=== PATIENT | female | born 1990 | race Hispanic/Latino ===

== ENCOUNTER → 2023-09-22 09:16 | Outpatient (REF) | payer OTHER, SELFPAY ==
[2023-09-22 10:12] LABS: % Basophils 0.4 % (0-2); % Eosinophils 1.6 % (0-6); % Immature Granulocytes 0.4 % (0-0.5); % Lymphocytes 21.5 % (20.5-51.1); % Neutrophils 71.1 % (42.2-75.2); Absolute Eosinophils 0.2 10^3/uL (0-0.7); Absolute Lymphocytes 2.4 10^3/uL (1.2-3.4); Absolute Monocytes 0.6 10^3/uL (0.1-0.6); Hemoglobin 10.8 g/dL (12.0-16.0); Mean Corp Hgb Conc. 31.8 g/dL (33.0-37.0); Mean Corpuscular Hgb 22.9 pg (27.0-31.0); Mean Platelet Volume 9.4 fL (7.4-10.4); Nucleated Red Blood Cells % 0 %; Platelet Count 453 10^3/uL (130-400); Red Blood Cell Count 4.72 10^6/uL (4.20-5.40); White Blood Cell Count 11.3 10^3/uL (4.8-10.8)
[2023-09-22 10:42] LABS: ALT (SGPT) 14 U/L (0-35); AST (SGOT) 18 U/L (14-36); Albumin 4.2 g/dl (3.5-5.0); Alkaline Phosphatase 78 U/L (38-126); Blood Urea Nitrogen 12 mg/dl (7-17); Calcium 9.7 mg/dl (8.4-10.2); Carbon Dioxide 24 mmol/L (22-30); Chloride 104 mmol/L (98-107); Glucose 85 mg/dl (70-99); Potassium 4.3 mmol/L (3.5-5.1); Sodium 137 mmol/L (135-145); Total Bilirubin 0.4 mg/dl (0.2-1.3); Total Protein 7.5 g/dl (6.3-8.2); eGFR > 60.00
[2023-09-22 10:49] LABS: Erythrocyte Sed Rate 23 mm/hour (0-20)
[2023-09-22 11:10] LABS: TSH Reflex To Free T4 1.66 uIU/ml (0.47-4.68)
== END ==
LOC: CLINIC 09:16
PROVIDERS: ATTENDING PHYSICIAN Internal Medicine; FAMILY PHYSICIAN Nurse Practitioner Adult Health
DX: R53.1 Weakness (principal)
CPT/HCPCS: 36415; 80053; 84443; 85025; 85652

== ENCOUNTER → 2023-09-27 15:02 | Outpatient (REF) | payer OTHER, SELFPAY | LOC: HWRAD 15:02 | PROVIDERS: ATTENDING PHYSICIAN Internal Medicine; FAMILY PHYSICIAN Nurse Practitioner Adult Health | DX: R53.1 Weakness (principal) | CPT/HCPCS: 70470; Q9967 ==

== ENCOUNTER → 2023-10-03 11:11 | Outpatient (REF) | payer OTHER, SELFPAY ==
[2023-10-03 12:04] LABS: % Basophils 0.5 % (0-2); % Immature Granulocytes 0.4 % (0-0.5); % Lymphocytes 23.8 % (20.5-51.1); % Monocytes 4.6 % (1.7-9.3); % Neutrophils 69.7 % (42.2-75.2); Absolute Basophils 0.1 10^3/uL (0-0.2); Absolute Eosinophils 0.1 10^3/uL (0-0.7); Absolute Lymphocytes 2.4 10^3/uL (1.2-3.4); Absolute Monocytes 0.5 10^3/uL (0.1-0.6); Absolute Neutrophils 7.2 10^3/uL (1.4-6.5); Hematocrit 34.5 % (37.0-47.0); Hemoglobin 10.7 g/dL (12.0-16.0); Mean Corpuscular Hgb 22.4 pg (27.0-31.0); Mean Corpuscular Volume 72.2 fL (81.0-99.0); Mean Platelet Volume 9.5 fL (7.4-10.4); Nucleated Red Blood Cells % 0 %; Platelet Count 428 10^3/uL (130-400); Red Blood Cell Count 4.78 10^6/uL (4.20-5.40); Red Cell Dist. Width 16.1 % (11.5-14.5); White Blood Cell Count 10.3 10^3/uL (4.8-10.8)
[2023-10-03 12:43] LABS: Erythrocyte Sed Rate 8 mm/hour (0-20)
== END ==
LOC: REG 11:11
PROVIDERS: ATTENDING PHYSICIAN Internal Medicine
DX: D72.829 Elevated white blood cell count, unspecified (principal)
CPT/HCPCS: 36415; 85025; 85652; 86140

== ENCOUNTER → 2023-10-18 06:32 | Outpatient (REF) | payer OTHER, SELFPAY | LOC: MRI 06:32 | PROVIDERS: ATTENDING PHYSICIAN Internal Medicine; FAMILY PHYSICIAN Nurse Practitioner Adult Health | DX: R53.1 Weakness (principal) | CPT/HCPCS: 70551 ==

== ENCOUNTER 2023-12-19 12:12 | Emergency (ER) | payer OTHER, SELFPAY ==
[2023-12-19 12:27] VITALS: BP 156/103
--- NOTE | 2023-12-19 14:11 | ED.GENMED ---
History of Present Illness
General
Chief Complaint: Back Pain
Source: patient (language line.)
Exam Limitations: none
Time Seen by Provider: 12/19/23 13:40
Nursing documentation reviewed up to this point in time: agreed with
Travel History
Have you had any contact with someone who has COVID-19?: No
Do you have any symptoms of coronavirus? Fever > 100 degrees, chills, cough, shortness of breath, sore throat, loss of taste or smell, muscle aches, or headache?: No
History of Present Illness
History of Present Illness:
Patient to ED with complaint of low back pain. Symptoms started on monday. Worse with movment. No radiation of pain. No weakness in extremities. No bowel or bladder issues.No history of trauma. No urinary symptoms. To ED accompanied by spouse
for eval.
Past History
Past History
ED Past Medical History: None
ED Past Surgical History: Cholecystectomy
Social History
Tobacco: Non-smoker
Alcohol: None
Drug: None
Review of Systems
Review of Systems
Allergies reviewed?: Yes
All Other Systems: ROS reviewed and negative except as documented in HPI and ROS
Constitutional: Reports no symptoms
EENT: Reports no symptoms
Respiratory: Reports no symptoms
Cardiac: Reports no symptoms
ABD/GI: Reports no symptoms
: Reports no symptoms
Musculoskeletal: Reports back pain (bilateral lower back pain)
Skin: Reports no symptoms
Neurological: Reports no symptoms
Psychiatric: Reports no symptoms
Phy Exam
General Physical Exam
General Presentation: well appearing and no apparent distress
General age: appears stated age
General Skin: warm and dry
General Habitus: normal
General Mental: alert
Musculoskeletal Exam
Musculoskeletal Exam: full ROM and neuro vasc intact
Skin Exam
Skin Exam: normal color, warm/dry and no rash
Psychiatric Exam
Psychiatric Exam: normal mood/affect
Course
Orders/Labs/Results
Orders:
Orders
12/19/23 14:05
Ketorolac [Toradol] 60 mg IM NOW STA
Test Result ONCE
Lumbar Spine Complete, 4 View [CR Lumbar Spine Comp Min 4 Vw*] Urgent
Comment:
Reason For Exam: [email or web address]
12/19/23 15:00
Beta Hcg Urine Qualitative Screen [HCG, Urine Qualitative Screen] Urgent
Date Specimen was Collected: 12/19/23
Time Specimen was Collected: 14:11
12/19/23 16:01
Urinalysis Reflex To Culture Urgent
Date Specimen was Collected: 12/19/23
Time Specimen was Collected: 15:55
Urine Microscopic Reflex Cult Urgent
Urine Culture Urgent
CATHLEEN Source: U
Specimen Description:
Date Specimen was Collected: 12/19/23
Time Specimen was Collected: 15:55
12/19/23 16:32
Nitrofurantoin Monohydrate [Macrobid] 100 mg PO NOW STA
Abnormal Lab Results
12/19/23
16:01
Ur Occult Blood Reflex Trace A
(Negative)
Leukocyte Esterase Rfl 1+ A
(Negative)
Urine WBC (Reflex) 11-15 A /HPF
(0-5)
Urine Bacteria (Reflex) Many A
(Negative)
Vital Signs
Initial and Last Documented VS:
Initial Vital Signs
Temp Pulse Resp BP Pulse Ox
98.6 F 90 20 156/103 100
12/19/23 12:27 12/19/23 12:27 12/19/23 12:27 12/19/23 12:27 12/19/23 12:27
Last Documented Vital Signs
Temp Pulse Resp BP Pulse Ox
98.6 F 84 20 131/83 100
12/19/23 12:27 12/19/23 16:53 12/19/23 12:27 12/19/23 16:53 12/19/23 12:27
*Radiology
Radiology exam reviewed: radiology read reviewed
*Pulse Oximetry
Patient hypoxic: no
*Critical Care Note
Total Time (30-74mins, 75-104mins- exclusive of procedures): Not Applicable
ED Attending Note
-
Portions of this chart may have been created with voice recognition software.� Occasional wrong word or��sound alike� substitutions may have occurred due to the inherent limitations of voice recognition software.
Discharge Plan
Departure
Patient Disposition: Home (Routine Discharge)
Date of Disposition: 12/19/23
Time of Disposition: 16:33
Patient with high blood pressure during this ER visit?: No
Condition: Good
Covid-19: Not Applicable
Discharge Problem:
Low back pain
Instructions: Urinary tract infections in adults, Low Back Pain (DC)
Prescriptions:
New
nitrofurantoin monohyd/m-cryst [Macrobid] 100 mg capsule
100 mg PO BID 5 Days Qty: 10 0RF
ibuprofen 600 mg tablet
600 mg PO Q6H PRN (Reason: Pain) Qty: 20 0RF
Referrals:
[facility] [Outside] - Follow up in 2-3 days
NONE,* [Family Provider] -
Interventions
Interventions:
*Risk Screen - Suicide Last Done: 12/19/23 16:53
*General Assessment Last Done: 12/19/23 14:04
*Neglect/Abuse Screening Last Done: 12/19/23 14:04
*ED COVID-19 Vaccine History Last Done: 12/19/23 12:27
*Nursing Disposition Last Done: 12/19/23 16:53
ED-Musculoskeletal Assessment Last Done: 12/19/23 14:04
Discharge Date and Time
Discharge Date/Time: 12/19/23 16:54
Print Language: ESTONIAN
[2023-12-19] MEDS: TORADOL 60 MG IM (14:33)
[2023-12-19 15:18] LABS: HCG, Urine Qualitative Screen Negative
[2023-12-19 16:13] LABS: Urine Albumin Negative (Neg - Trace); Urine Bilirubin Negative (Negative); Urine Character Slightly Cloudy (Clear); Urine Color Yellow; Urine Glucose Negative (Negative); Urine Ketone Negative (Negative); Urine Leukocyte 1+ (Negative); Urine Nitrite Negative (Negative); Urine Occult Blood Trace (Negative); Urine Specific Gravity 1.025 (<1.030); Urine Urobilinogen Negative (Neg - 1+)
[2023-12-19 16:29] LABS: Urine Bacteria Many (Negative); Urine Mucus Many; Urine Red Blood Cell 0-2 /HPF (0-2)
[2023-12-19] MEDS: MACROBID 100 MG PO (16:45)
[2023-12-19 16:53] VITALS: BP 131/83
== END 2023-12-19 16:54 | disposition home or self-care (01) ==
LOC: EMR 12:12
PROVIDERS: Nurse Practitioner; EMERGENCY PHYSICIAN Emergency Medicine
DX: M54.50 Low back pain, unspecified (principal); Z90.49 Acquired absence of other specified parts of digestive tract
CPT/HCPCS: 99284; 96372; 72110; 81003; 81015; 81025; 87086

== ENCOUNTER → 2024-04-10 09:26 | Outpatient (REF) | payer OTHER, SELFPAY ==
[2024-04-10 11:30] LABS: Erythrocyte Sed Rate 20 mm/hour (0-20)
[2024-04-10 12:20] LABS: Ferritin 5.3 ng/ml (6.24-137)
[2024-04-10 12:51] LABS: Folate 10.2 ng/ml (2.76-20); Vitamin B12 352 pg/ml (239-931)
[2024-04-12 07:46] LABS: ANA, IgG Reflex to HEp-2 None Detected (None Detected)
[2024-04-12 08:02] LABS: Cardiolipin IgA Antibody <10 APL (<=11); Cardiolipin IgM Antibody 10 MPL (<=12); Cardiolipin Igg Antibody <10 GPL (<=14)
[2024-04-12 09:14] LABS: SSA 52 (Ro)(ENA) Ab, IgG 3 AU/mL (0-40); SSA 60 (Ro)(ENA) Ab, IgG 1 AU/mL (0-40)
[2024-04-12 14:51] LABS: Ceruloplasmin 32 mg/dL (16-45)
[2024-04-12 18:51] LABS: Beta-2-Glycoprotein I Ab. IgG <10 SGU (<=20); Beta-2-Glycoprotein I Ab. IgM <10 SMU (<=20)
[2024-04-13 00:34] LABS: Purkinje Cell/Neuronal Nuc IgG None Detected (None Detected)
[2024-04-13 01:58] LABS: Beta-2-Glycoprotein I Ab. IgA <10 SAU (<=20)
[2024-04-13 02:04] LABS: Phosphatidylserine Ab, IgA 0 APS (0-19); Phosphatidylserine Ab, IgG 0 GPS (0-15); Phosphatidylserine Ab, IgM 0 MPS (0-21)
== END ==
LOC: CLINIC 09:26
PROVIDERS: ATTENDING PHYSICIAN Psychiatry & Neurology Neurology
DX: R49.0 Dysphonia (principal)
CPT/HCPCS: 36415; 82390; 82607; 82728; 82746; 85652; 86038; 86140; 86146; 86147; 86148; 86235; 86255; 86780

== ENCOUNTER 2024-05-23 09:13 | Outpatient (RCR) | payer OTHER, SELFPAY | END 2024-05-23 23:59 | disposition home or self-care (01) | LOC: ROT 09:13 | PROVIDERS: ATTENDING PHYSICIAN Psychiatry & Neurology Neurology | DX: G24.9 Dystonia, unspecified (principal); R49.0 Dysphonia; Z73.6 Limitation of activities due to disability; M62.81 Muscle weakness (generalized); E61.1 Iron deficiency | CPT/HCPCS: 97010; 97110; 97167; 97530 ==

== ENCOUNTER 2024-06-12 11:06 | Outpatient (RCR) | payer OTHER, SELFPAY ==
[2024-06-04] MEDS: VENOFER 110 MG IV (11:09)
[2024-06-04 11:13] VITALS: BP 148/93
[2024-06-04] MEDS: TYLENOL 650 MG PO (11:14)
[2024-06-04] MEDS: NSS 250 IV (11:15)
[2024-06-04 12:45] VITALS: BP 130/84
[2024-06-07 10:47] VITALS: BP 140/92
[2024-06-07] MEDS: VENOFER 110 MG IV (10:51)
[2024-06-07] MEDS: TYLENOL 650 MG PO (10:52)
[2024-06-07] MEDS: NSS 250 IV (10:52)
[2024-06-07 12:25] VITALS: BP 125/68
[2024-06-12] MEDS: NSS 250 IV (11:08)
[2024-06-12] MEDS: TYLENOL 650 MG PO (11:08)
[2024-06-12] MEDS: VENOFER 110 MG IV (11:09)
[2024-06-12 11:16] VITALS: BP 135/82
[2024-06-12 12:25] VITALS: BP 118/77
== END 2024-06-13 08:03 | disposition home or self-care (01) ==
LOC: OID 11:06
PROVIDERS: ATTENDING PHYSICIAN Psychiatry & Neurology Neurology
DX: R79.0 Abnormal level of blood mineral (principal); R79.89 Other specified abnormal findings of blood chemistry
CPT/HCPCS: 96361; 96365; J1756

== ENCOUNTER 2024-06-19 10:59 | Outpatient (RCR) | payer OTHER, SELFPAY | END 2024-06-19 23:59 | disposition home or self-care (01) | LOC: RPT 10:59 | PROVIDERS: ATTENDING PHYSICIAN Psychiatry & Neurology Neurology | DX: G24.9 Dystonia, unspecified (principal); R49.0 Dysphonia; Z73.6 Limitation of activities due to disability; M62.81 Muscle weakness (generalized); R26.89 Other abnormalities of gait and mobility | CPT/HCPCS: 97010; 97110; 97112; 97140; 97163; 97530 ==

== ENCOUNTER 2024-06-28 09:52 | Outpatient (RCR) | payer OTHER, SELFPAY | END 2024-06-28 23:59 | disposition home or self-care (01) | LOC: RPT 09:52 | PROVIDERS: ATTENDING PHYSICIAN Psychiatry & Neurology Neurology | DX: G24.9 Dystonia, unspecified (principal); R49.0 Dysphonia; Z73.6 Limitation of activities due to disability; R26.81 Unsteadiness on feet; M62.81 Muscle weakness (generalized); R26.89 Other abnormalities of gait and mobility | CPT/HCPCS: 97110; 97112; 97530 ==